=== PATIENT | male | born 1960 | race Caucasian/White ===

== ENCOUNTER 2016-11-09 17:46 | Emergency (ER) | payer OTHER ==
[2016-11-09 18:05] VITALS: TEMP 98.5; BMI 24.4
--- NOTE | 2016-11-09 18:32 | PDOC ---
History of Present Illness - General History Source: Patient Exam Limitations: No Limitations - History of Present Illness Initial Comments: 11/09/16 18:49 The patient is a 56 year old male with a PMHx of WPW (ablation therapy at 27) who presents to the ED with irregular heart rate since yesterday and chest tightness today. Patient reports the pain did not radiate, but it was constant. He reports the pain worsened with deep breaths and movement. He had a stress test about 2 years ago, which was normal. He noticed an irregular heart rate yesterday, which resolved last night around 7 pm, but returned today along with the chest pain. He denies SOB, headache, dizziness. He denies fever, chills, nausea, vomiting, diarrhea. He denies recent travel. Firmware Architect: Dr. Pool Coronado <Radha Matthews - Last Filed: 11/09/16 18:53> - General History Source: Patient, Old Records Exam Limitations: No Limitations <Laureano Beltran - Last Filed: 11/09/16 19:33> - General Chief Complaint: Chest Pain Stated Complaint: PALPITATION/SKIPPING BEATS/CHEST PAIN Time Seen by Provider: 11/09/16 17:56 Past History <Radha Matthews - Last Filed: 11/09/16 18:53> - Past Medical History Cardiac Disorders: Yes (H/O WPW W/ ABLATION) GI Disorders: Yes (ACID REFLUX) HTN: Yes Suicide Attempt (Hx): No - Surgical History Cardiac Surgery: Yes (ABLATION FOR WPW) - Psycho/Social/Smoking Cessation Hx Anxiety: No Suicidal Ideation: No Smoking History: Former smoker Have you smoked in the past 12 months: No Number of Cigarettes Smoked Daily: 0 If you are a former smoker, when did you quit?: 38 YEARS AGO Information on smoking cessation initiated: No Hx Alcohol Use: No Drug/Substance Use Hx: No Substance Use Type: None <Laureano Beltran - Last Filed: 11/09/16 19:33> - Past Medical History Allergies/Adverse Reactions: Allergies Allergy/AdvReac Type Severity Reaction Status Date / Time epinephrine [From Adrenalin] AdvReac Severe palpitation Verified 11/09/16 17:48 s epinephrine HCl AdvReac Severe palpitation Verified 11/09/16 17:48 [From Adrenalin] s Home Medications: Ambulatory Orders Omeprazole 20 mg PO DAILY 10/06/12 Aspirin [ASA -] 325 mg PO DAILY 10/08/13 Metoprolol Succinate [Toprol XL -] 25 mg PO BID 10/08/13 Review of Systems - Review of Systems Able to Perform ROS?: Yes Comments:: 11/09/16 18:49 GENERAL/CONSTITUTIONAL: No fever or chills. No weakness. HEAD, EYES, EARS, NOSE AND THROAT: No change in vision. No ear pain or discharge. No sore throat. CARDIOVASCULAR: + chest pain, irregular heart rate. No shortness of breath. RESPIRATORY: No cough, wheezing, or hemoptysis. GASTROINTESTINAL: No nausea, vomiting, diarrhea or constipation. GENITOURINARY: No dysuria, frequency, or change in urination. MUSCULOSKELETAL: No joint or muscle swelling or pain. No neck or back pain. SKIN: No rash NEUROLOGIC: No headache, vertigo, loss of consciousness, or change in strength/ sensation. ENDOCRINE: No increased thirst. No abnormal weight change. HEMATOLOGIC/LYMPHATIC: No anemia, easy bleeding, or history of blood clots. ALLERGIC/IMMUNOLOGIC: No hives or skin allergy. <Radha Matthews - Last Filed: 11/09/16 18:53> *Physical Exam - Vital Signs Last Vital Signs Temp Pulse Resp BP Pulse Ox 98.5 F 75 18 118/70 96 11/09/16 17:48 11/09/16 18:41 11/09/16 18:41 11/09/16 18:41 11/09/16 18:41 - Physical Exam Comments: 11/09/16 18:49 GENERAL: Awake, alert, and fully oriented, in no acute distress HEAD: No signs of trauma EYES: PERRLA, EOMI, sclera anicteric, conjunctiva clear ENT: Auricles normal inspection, hearing grossly normal, nares patent, oropharynx clear without exudates. Moist mucosa NECK: Normal ROM, supple, no lymphadenopathy, JVD, or masses LUNGS: Breath sounds equal, clear to auscultation bilaterally. No wheezes, and no crackles HEART: Regular rate and rhythm, normal S1 and S2, no murmurs, rubs or gallops ABDOMEN: Soft, nontender, normoactive bowel sounds. No guarding, no rebound. No masses EXTREMITIES: Normal range of motion, no edema. No clubbing or cyanosis. No cords, erythema, or tenderness NEUROLOGICAL: Cranial nerves II through XII grossly intact. Normal speech, normal gait SKIN: Warm, Dry, normal turgor, no rashes or lesions noted. <Radha Matthews - Last Filed: 11/09/16 18:53> - Vital Signs Last Vital Signs Temp Pulse Resp BP Pulse Ox 98.5 F 81 18 130/80 100 11/09/16 17:48 11/09/16 17:48 11/09/16 17:48 11/09/16 17:48 11/09/16 17:48 <Laureano Beltran - Last Filed: 11/09/16 19:33> Heart Score/ECG Review - History History: Slightly suspicious - Electrocardiogram EKG: Non specific repolarization disturbance - Age Age: 45-65 - Risk Factors Based on the list above the patient has:: No risk factors known #1 ECG reviewed & interpreted by me at: 18:10 11/09/16 19:21 NSR 83, RSR', no std/cesario, normal axis, normal intervals, QTC 418 msec. ( unchanged from prior) <Laureano Beltran - Last Filed: 11/09/16 19:33> ED Treatment Course - LABORATORY CBC & Chemistry Diagram: 11/09/16 18:25 11/09/16 18:25 - ADDITIONAL ORDERS Additional order review: 11/09/16 18:25 RBC 4.59 MCV 91.6 MCHC 34.0 RDW 12.1 MPV 9.2 Neutrophils % 64.4 Lymphocytes % 25.1 Monocytes % 7.2 Eosinophils % 1.2 Basophils % 2.1 H - RADIOLOGY Radiograph Interpretation: 11/09/16 18:53 Chest X-Ray Reported by Dr. Shlomo Mancini Impression: No significant interval change or acute lung disease is present. <Radha Matthews - Last Filed: 11/09/16 18:53> - LABORATORY CBC & Chemistry Diagram: 11/09/16 18:25 11/09/16 18:25 - RADIOLOGY Radiology Studies Ordered: Category Date Time Status CHEST PA & LAT [RAD] Stat Radiology 11/09/16 18:24 Ordered <Laureano Beltran - Last Filed: 11/09/16 19:33> Medical Decision Making - Medical Decision Making 11/09/16 19:21 A portion of this note was documented by scribe services under my direction. I have reviewed the details of the note, within reason, and agree with the documentation with the following case summary and management plan written by me. Patient treated in the ED. Nursing notes are reviewed and incorporated into the medical decision-making. Vital signs reviewed. Peripheral IV access obtained by the nurse, laboratory studies are drawn and sent, reviewed and interpreted by myself. Vital Signs Temp Pulse Resp BP Pulse Ox 98.5 F 75 18 118/70 96 11/09/16 17:48 11/09/16 18:41 11/09/16 18:41 11/09/16 18:41 11/09/16 18:41 56-year-old male with past medical history of WPW status post ablation approximately 30 years ago presents with palpitations since yesterday. Patient reported that he has been having intermittent skipped beats with rapid palpitations since yesterday evening that resolved yesterday night. However, today, patient continued to have intermittent skipped beats. Her proximal one hour prior to arrival at 5 PM, the patient had some left-sided chest tightness with no radiation. No shortness of breath diaphoresis or vomiting. Patient reports that deep breaths reproduces some of the pain. Denies pain on palpation. The patient has atypical components for AK. We'll obtain at the very minimum two troponins to rule out the patient. EKG is unchanged. The patient reports that he has had years of intermittent chest complaints including palpitations and chest tightness that he has been placed on metoprolol prior. We will touch base with Dr. Coronado for further disposition. 11/09/16 19:28 CBC, BMP 11/09/16 18:25 11/09/16 18:25 CMP Sodium 135 mmol/L (136-145) L 11/09/16 18:25 Potassium 4.2 mmol/L (3.5-5.1) 11/09/16 18:25 Chloride 105 mmol/L (98-107) 11/09/16 18:25 Carbon Dioxide 24 mmol/L (22-28) 11/09/16 18:25 Anion Gap 6 (8-16) L 11/09/16 18:25 BUN 19 mg/dl (7-18) H 11/09/16 18:25 Creatinine 0.9 mg/dl (0.6-1.3) 11/09/16 18:25 Creat Clearance w eGFR > 60 (>60) 11/09/16 18:25 Random Glucose 95 mg/dl (74-106) 11/09/16 18:25 Calcium 9.5 mg/dl (8.4-10.2) 11/09/16 18:25 Magnesium 2.0 mg/dL (1.8-2.4) 11/09/16 18:25 Total Bilirubin 0.4 mg/dl (0.2-1.0) D 11/09/16 18:25 AST 34 U/L (10-42) D 11/09/16 18:25 ALT 43 U/L (10-40) H D 11/09/16 18:25 Alkaline Phosphatase 43 U/L (32-92) 11/09/16 18:25 Creatine Kinase 102 IU/L (38-174) 11/09/16 18:25 Troponin I < 0.03 ng/ml (0.03-0.50) L 11/09/16 18:25 Total Protein 6.9 g/dl (6.4-8.3) 11/09/16 18:25 Albumin 4.1 g/dl (3.5-5.0) 11/09/16 18:25 Initial trop negative. I had discussed the case with DR. Lockwood regarding the details of the case. He agrees with my plan for two troponins and follow up with him in 2 days for follow up. Case signed out to Dr. Tucker for further evaluation and disposition. <Laureano Beltran - Last Filed: 11/09/16 19:33> *DC/Admit/Observation/Transfer - Attestations Scribe Attestion: 11/09/16 18:49 Documentation prepared by Radha Matthews, acting as medical massage therapist for Laureano Beltran MD. <Radha Matthews - Last Filed: 11/09/16 18:53> <Laureano Beltran - Last Filed: 11/09/16 19:33> Diagnosis at time of Disposition: Chest pain Qualifiers: Chest pain type: unspecified Qualified Code(s): R07.9 - Chest pain, unspecified - Discharge Dispostion Condition at time of disposition: Stable - Referrals Referrals: Wes Lockwood MD [Staff Physician] - - Patient Instructions Printed Discharge Instructions: DI for Atypical Chest Pain Additional Instructions: Please follow up with DR. Lockwood this .
[2016-11-09 18:39] LABS: MEAN PLT VOLUME 9.2 fl (7.5-11.1); RDW 12.1 % (11.9-15.9); WHITE BLOOD COUNT 7.2 K/mm3 (4.0-10.0)
[2016-11-09 18:41] LABS: BASOPHIL 2.1 % (0-2.0); EOSINOPHIL 1.2 % (0-4.5); MCH 31.1 pg (25.7-33.7); MEAN CELL VOLUME 91.6 fl (80-96); NEUTROPHILS 64.4 % (42.8-82.8); PLATELET COUNT 217 K/MM3 (134-434)
[2016-11-09 18:58] LABS: ALBUMIN 4.1 g/dl (3.5-5.0); ALK PHOS 43 U/L (32-92); ANION GAP 6 (8-16); BILIRUBIN,TOTAL 0.4 mg/dl (0.2-1.0); CALCIUM 9.5 mg/dl (8.4-10.2); CO2 24 mmol/L (22-28); CPK(DFH) 102 IU/L (38-174); CREATININE 0.9 mg/dl (0.6-1.3); GLUCOSE,RANDOM 95 mg/dl (74-106); SGOT/AST 34 U/L (10-42); SGPT/ALT 43 U/L (10-40); TOT PROT 6.9 g/dl (6.4-8.3)
[2016-11-09 19:23] LABS: TROPONIN I (DFP) < 0.03 ng/ml (0.03-0.50)
[2016-11-09] MEDS ORDERED: ASPIRIN 81 MG CHEWABLE TABLETS PO ONE (19:24)
[2016-11-09] MEDS ORDERED: ASPIRIN 81 MG CHEWABLE TABLETS ONE (19:27)
[2016-11-09 20:43] VITALS: BP 104/71; PULSE 78
--- NOTE | 2016-11-09 20:43 | PDOC ---
*Physical Exam - Vital Signs Last Vital Signs Temp Pulse Resp BP Pulse Ox 98.5 F 75 18 118/70 96 11/09/16 17:48 11/09/16 18:41 11/09/16 18:41 11/09/16 18:41 11/09/16 18:41 ED Treatment Course - LABORATORY CBC & Chemistry Diagram: 11/09/16 18:25 11/09/16 18:25 - ADDITIONAL ORDERS Additional order review: Laboratory Results 11/09/16 11/09/16 18:25 18:25 Sodium 135 L Potassium 4.2 Chloride 105 Carbon Dioxide 24 Anion Gap 6 L BUN 19 H Creatinine 0.9 Creat Clearance w eGFR > 60 Random Glucose 95 Calcium 9.5 Magnesium 2.0 Total Bilirubin 0.4 D AST 34 D ALT 43 H D Alkaline Phosphatase 43 Creatine Kinase 102 Troponin I < 0.03 L Total Protein 6.9 Albumin 4.1 11/09/16 18:25 RBC 4.59 MCV 91.6 MCHC 34.0 RDW 12.1 MPV 9.2 Neutrophils % 64.4 Lymphocytes % 25.1 Monocytes % 7.2 Eosinophils % 1.2 Basophils % 2.1 H - Medications Given in the ED: ED Medications Discontinued Medications Generic Name Dose Route Start Last Admin Trade Name Freq PRN Reason Stop Dose Admin Aspirin 324 mg 11/09/16 19:24 11/09/16 19:29 Asa - PO 11/09/16 19:25 324 mg ONCE ONE Administration Progress Note - Progress Note Progress Note: Care of this patient was transferred to [place] from Dr. Beltran at 1900 hrs. Patient is a 56-year-old male who has a cardiac history significant for WPW that was ablated many years ago. Patient has had some palpitations and mild chest discomfort over the last 24 hours. Patient had a cardiac catheter 2 years ago that was clean. Dr. Beltran spoke with patient's probate paralegal who recommends that we get to negative sets of cardiac enzymes and then patient will follow-up with his probate paralegal tomorrow if he develops no further symptoms and everything else checks out okay. Initial set of cardiac enzymes is negative patient will have second set at 11 PM. Consider cardiac enzymes is also negative with a troponin of less than 0.032 Patient discharged home will follow-up with his probate paralegal tomorrow *DC/Admit/Observation/Transfer Diagnosis at time of Disposition: Chest pain Qualifiers: Chest pain type: unspecified Qualified Code(s): R07.9 - Chest pain, unspecified - Discharge Dispostion Disposition: HOME Condition at time of disposition: Stable - Referrals Referrals: Wes Lockwood MD [Staff Physician] - - Patient Instructions Printed Discharge Instructions: DI for Atypical Chest Pain Additional Instructions: Please follow up with DR. Lockwood this . - Post Discharge Activity
[2016-11-09 23:31] LABS: CPK(DFH) 89 IU/L (38-174)
[2016-11-09 23:45] LABS: TROPONIN I (DFP) < 0.03 ng/ml (0.03-0.50)
--- NOTE | 2016-11-10 09:10 | EKG ---
Test Reason : Blood Pressure : / mmHG Vent. Rate : 083 BPM Atrial Rate : 083 BPM P-R Int : 178 ms QRS Dur : 104 ms QT Int : 356 ms P-R-T Axes : 045 008 038 degrees QTc Int : 418 ms POOR DATA QUALITY, INTERPRETATION MAY BE ADVERSELY AFFECTED NORMAL SINUS RHYTHM RSR' OR QR PATTERN IN V1 SUGGESTS RIGHT VENTRICULAR CONDUCTION DELAY BORDERLINE ECG WHEN COMPARED WITH ECG OF 08-JUL-2006 22:55, NO SIGNIFICANT CHANGE WAS FOUND Confirmed by RAFI DURÁN MD ([id number]) on 11/10/2016 9:09:31 AM Referred By: DR FUNK Confirmed By:RAFI DURÁN MD
== END 2016-11-09 23:58 | disposition home or self-care (01) ==
LOC: FER 17:46
DX: R07.9 Chest pain, unspecified (principal); I45.6 Pre-excitation syndrome; K21.9 Gastro-esophageal reflux disease without esophagitis; I10 Essential (primary) hypertension; Z87.891 Personal history of nicotine dependence
CPT/HCPCS: 36415; 71020-TC; 80053; 82550; 83735; 84484; 85025; 93005; 99282-25

== ENCOUNTER 2022-02-07 12:14 | Observation (INO) | payer OTHER ==
[2022-02-07 13:30] LABS: HEMATOCRIT 38.2 % (35.4-49); HEMOGLOBIN 13.7 G/dL (11.7-16.9); MCH 33.9 pg (25.7-33.7); MCHC 35.8 g/dl (32.0-35.9); MEAN CELL VOLUME 94.9 fl (80-96); MEAN PLT VOLUME 7.4 fl (7.5-11.1); RBC 4.03 10^6/uL (4.00-5.60); RDW 13.2 % (11.9-15.9)
[2022-02-07 13:34] LABS: INR 0.95 (0.83-1.09); PROTHROMBIN TIME (PATIENT) 10.9 SEC (9.7-13.0)
[2022-02-07 13:40] LABS: ALBUMIN 4.3 g/dl (3.4-5.0); BILIRUBIN,TOTAL 0.6 mg/dl (0.2-1); CALCIUM 10.1 mg/dl (8.5-10); CREATININE 0.8 mg/dl (0.55-1.3); TOT PROT 7.4 g/dl (6.4-8.2)
[2022-02-07 14:12] LABS: PLATELET ESTIMATE ADEQUATE
[2022-02-07] MEDS ORDERED: PANTOPRAZOLE 20 MG TABLET PO PRN (15:11)
[2022-02-07] MEDS ORDERED: ACETAMINOPHEN 325 MG TABLET (FP) PO PRN (15:14)
[2022-02-07] MEDS ORDERED: ATORVASTATIN CA 80 MG TABLET (FP) PO ONE (15:19)
[2022-02-07] MEDS ORDERED: ASPIRIN 81 MG CHEWABLE TABLETS ONE (15:23)
[2022-02-07] MEDS ORDERED: ATORVASTATIN CA 80 MG TABLET (FP) ONE (15:23)
[2022-02-07] MEDS: ASPIRIN 81 MG CHEWABLE TABLETS PO SCH (15:30)
[2022-02-07] MEDS: SODIUM CHLORIDE 1,000 ML IV SCH (15:30)
[2022-02-07 15:33] LABS: MAGNESIUM 2.3 mg/dL (1.8-2.4)
[2022-02-08 00:16] VITALS: BMI 24.0
[2022-02-08] MEDS: ASPIRIN 81 MG CHEWABLE TABLETS PO SCH (09:54)
[2022-02-08] MEDS ORDERED: ENOXAPARIN NA (PORCINE) 40 MG/0.4 ML DISP.SYRIN SQ SCH (10:00)
[2022-02-08 10:20] VITALS: TEMP 98.6
[2022-02-08 15:26] LABS: BASO % 0.2 % (0-2.0); EOS % 0.9 % (0-4.5); HEMATOCRIT 37.5 % (35.4-49); HEMOGLOBIN 12.8 GM/dL (11.7-16.9); MCH 32.5 pg (25.7-33.7); MCHC 34.2 g/dl (32.0-35.9); MEAN CELL VOLUME 94.9 fl (80-96); MEAN PLT VOLUME 7.4 fl (7.5-11.1); MONO % 8.8 % (3.8-10.2); NEUT % 78.1 % (42.8-82.8); PLATELET COUNT 210 10^3/uL (134-434); RBC 3.95 M/mm3 (4.00-5.60); RDW 12.8 % (11.9-15.9); WHITE BLOOD COUNT 5.4 K/mm3 (4.0-10.0)
[2022-02-08] MEDS: SODIUM CHLORIDE 1,000 ML IV SCH (18:07)
[2022-02-08 19:24] VITALS: BP 130/70; PULSE 82
[2022-02-08 20:13] LABS: BLOOD UREA NITROGEN 15.2 mg/dL (7-18); CALCIUM 8.8 mg/dL (8.5-10.1); CREATININE 0.8 mg/dL (0.55-1.3)
[2022-02-08] MEDS ORDERED: ATORVASTATIN CA 80 MG TABLET (FP) PO SCH (22:00)
[2022-02-08] MEDS ORDERED: ATORVASTATIN CA 20 MG TABLET (FP) PO SCH (22:00)
== END 2022-02-08 21:30 | disposition home or self-care (01) ==
LOC: FER 12:14 → FM/S 14:16 → INTOOBSV 14:55 → OBSVTOIN 14:55 → FM/S 20:27 → J2W 22:17
PROVIDERS: ADMIT Internal Medicine; ATTEND Nurse Practitioner Family
PROC: 3E0337Z Introduction of Electrolytic and Water Balance Substance into Peripheral Vein, Percutaneous Approach (ICD-10-PCS; principal; 2022-02-07)
PROC: 3E023GC Introduction of Other Therapeutic Substance into Muscle, Percutaneous Approach (ICD-10-PCS; 2022-02-07)
DX: U07.1 COVID-19 (principal); R20.0 Anesthesia of skin; I45.6 Pre-excitation syndrome; K21.9 Gastro-esophageal reflux disease without esophagitis; I10 Essential (primary) hypertension; Z85.46 Personal history of malignant neoplasm of prostate; Z88.8 Allergy status to other drugs, medicaments and biological substances; Z29.8 Encounter for other specified prophylactic measures
CPT/HCPCS: 36415; 70450-TC; 70551-TC; 80048; 80053; 80061; 81003; 82607; 83036; 83735; 84443; 84484; 85025; 85610; 93005; 93880-TC; 97116-GP; 97161-GP; 99285-25; C9803-CS; G0378; U0003; U0005

== ENCOUNTER 2022-03-12 11:58 | Emergency (ER) | payer OTHER ==
[2022-03-12 12:04] VITALS: TEMP 98.4; BMI 21.6
[2022-03-12 13:36] LABS: BASO % 0.1 % (0-2.0); EOS % 0.5 % (0-4.5); HEMATOCRIT 33.7 % (35.4-49); HEMOGLOBIN 11.8 GM/dL (11.7-16.9); LYMPH % 10.9 % (8-40); MCH 32.6 pg (25.7-33.7); MCHC 35.2 g/dl (32.0-35.9); MEAN CELL VOLUME 92.7 fl (80-96); MEAN PLT VOLUME 7.7 fl (7.5-11.1); MONO % 9.9 % (3.8-10.2); NEUT % 78.6 % (42.8-82.8); PLATELET COUNT 184 10^3/uL (134-434); RBC 3.63 M/mm3 (4.00-5.60); RDW 12.7 % (11.9-15.9); WHITE BLOOD COUNT 5.5 K/mm3 (4.0-10.0)
[2022-03-12 14:03] LABS: ALBUMIN 3.6 g/dl (3.4-5.0)
[2022-03-12 14:04] LABS: BLOOD UREA NITROGEN 24.7 mg/dL (7-18)
[2022-03-12 14:06] LABS: CREATININE 0.8 mg/dL (0.55-1.3)
[2022-03-12 14:08] LABS: BILIRUBIN,TOTAL 0.4 mg/dL (0.2-1); TOT PROT 6.4 g/dl (6.4-8.2)
[2022-03-12 15:45] VITALS: BP 113/81; PULSE 72; RESP 16
== END 2022-03-12 15:52 | disposition home or self-care (01) ==
LOC: JER 11:58
DX: R20.2 Paresthesia of skin (principal)
CPT/HCPCS: 36415; 80053; 84484; 85025; 93005; 93010; 99283-25